=== PATIENT | female | born 1950 | race Caucasian/White ===

== ENCOUNTER 2022-08-19 04:04 | Observation (INO) ==
[2022-08-19] MEDS ORDERED: Naloxone 0.4 MG/ML INJ IVP PRN (10:11)
[2022-08-19] MEDS ORDERED: Acetaminophen 325 MG TABLET PO PRN ×2 (10:17→18:29)
[2022-08-19] MEDS ORDERED: Dextrose Gel 15 GM/37.5 ML TUBE PO PRN ×2 (10:27)
[2022-08-19] MEDS ORDERED: D5% in Water 1,000 ML IVC PRN (10:27)
[2022-08-19] MEDS ORDERED: *HR* Dextrose 50 % in Water (Syg) 50 ML SYRINGE IVP PRN (10:27)
[2022-08-19] MEDS ORDERED: Nitroglycerin 0.4 MG TAB.SUBL SL PRN (10:28)
[2022-08-19] MEDS ORDERED: *HR* HYDROcodone/Acet 5/325 mg TABLET PO PRN (10:28)
[2022-08-19 11:03] LABS: Hematocrit 39.8 % (35.3-44.9); Hemoglobin 12.9 g/dL (11.5-15.4); Mean Corpuscular HGB Conc 32.4 g/dL (31.6-35.5); Mean Corpuscular Hemoglobin 29.4 pg (28.0-33.3); Mean Corpuscular Volume 90.7 fL (83.0-100.0); Mean Platelet Volume 10.4 fL (9.4-12.4); Platelet Count 222 K/mcL (140-400); Red Blood Count 4.39 M/mcL (3.82-4.97); Red Cell Distribution Width 13.1 % (11.5-14.5)
[2022-08-19 11:49] LABS: Calcium 9.4 mg/dL (8.6-10.3); Potassium 3.7 mEq/L (3.5-5.1)
[2022-08-19] MEDS: amLODIPine 5 MG TABLET PO SCH (12:04)
[2022-08-19] MEDS: cloNIDine HCL 0.1 MG TABLET PO SCH ×2 (12:04→12:14)
[2022-08-19] MEDS: BuPROPion SR (12 HR) 150 MG TABLET PO SCH (12:04)
[2022-08-19] MEDS: Furosemide 20 MG TABLET PO SCH (12:04)
[2022-08-19] MEDS: Insulin LISPRO 300 UNITS/3 ML VIAL SUBQ SCH ×3 (12:05→19:45)
[2022-08-19] MEDS ORDERED: GlipiZIDE 5 MG TABLET PO SCH (17:00)
[2022-08-19] MEDS ORDERED: Ibuprofen 600 MG TABLET PO PRN (18:29)
[2022-08-19] MEDS: Gabapentin 300 MG CAPSULE PO SCH (22:00)
[2022-08-19] MEDS: *HR* Metformin 500 MG TABLET PO SCH (22:00)
[2022-08-20 06:47] LABS: Basophils # 0.1 K/mcL (0.0-0.2); Eosinophils # 0.2 K/mcL (0.0-0.6); Eosinophils % 2.4 %; Hematocrit 38.9 % (35.3-44.9); Hemoglobin 12.3 g/dL (11.5-15.4); Immature Granulocytes % 0.1 % (0-4); Lymphocytes # 1.9 K/mcL (0.6-4.6); Mean Corpuscular HGB Conc 31.6 g/dL (31.6-35.5); Mean Corpuscular Hemoglobin 29.2 pg (28.0-33.3); Mean Corpuscular Volume 92.4 fL (83.0-100.0); Mean Platelet Volume 10.8 fL (9.4-12.4); Monocytes # 0.7 K/mcL (0.0-1.3); Monocytes % 10.6 %; Neutrophils # 3.8 K/mcL (1.6-8.9); Platelet Count 234 K/mcL (140-400); Red Blood Count 4.21 M/mcL (3.82-4.97); Red Cell Distribution Width 13.2 % (11.5-14.5); Segmented Neutrophils % 56.9 %; White Blood Count 6.7 K/mcL (4.3-11.1)
[2022-08-20 07:46] LABS: Calcium 9.6 mg/dL (8.6-10.3); Potassium 3.9 mEq/L (3.5-5.1)
[2022-08-20] MEDS: Insulin LISPRO 300 UNITS/3 ML VIAL SUBQ SCH ×4 (07:55→20:47)
[2022-08-20] MEDS: *HR* Metformin 500 MG TABLET PO SCH ×2 (08:03→17:56)
[2022-08-20] MEDS: Gabapentin 300 MG CAPSULE PO SCH ×2 (08:03→20:47)
[2022-08-20] MEDS: BuPROPion SR (12 HR) 150 MG TABLET PO SCH (08:03)
[2022-08-20] MEDS ORDERED: 0.9 % Sodium Chloride 1,000 ML IVC SCH (09:00)
[2022-08-20] MEDS ORDERED: hydroCHLOROthiazide 25 MG TABLET PO SCH (09:00)
[2022-08-20] MEDS: Loratadine 10 MG TABLET PO SCH (11:07)
[2022-08-20] MEDS: amLODIPine 5 MG TABLET PO SCH (11:19)
[2022-08-20] MEDS: Ketoconazole 2% CRM 15 GM TUBE TP SCH (11:26)
[2022-08-20] MEDS: diazePAM 5 MG TABLET PO PRN ×2 (11:46→23:58)
[2022-08-20] MEDS: *HR* OxyCODONE/APAP 5/325 TABLET PO PRN (23:58)
[2022-08-21 07:53] LABS: Potassium 3.8 mEq/L (3.5-5.1)
[2022-08-21 08:00] LABS: Hematocrit 35.7 % (35.3-44.9); Hemoglobin 11.5 g/dL (11.5-15.4); Mean Corpuscular HGB Conc 32.2 g/dL (31.6-35.5); Mean Corpuscular Hemoglobin 29.7 pg (28.0-33.3); Mean Corpuscular Volume 92.2 fL (83.0-100.0); Platelet Count 235 K/mcL (140-400); Red Blood Count 3.87 M/mcL (3.82-4.97); Red Cell Distribution Width 13.1 % (11.5-14.5); White Blood Count 6.7 K/mcL (4.3-11.1)
[2022-08-21] MEDS: Insulin LISPRO 300 UNITS/3 ML VIAL SUBQ SCH ×4 (09:32→19:46)
[2022-08-21] MEDS: *HR* Metformin 500 MG TABLET PO SCH ×2 (09:49→17:57)
[2022-08-21] MEDS: Gabapentin 300 MG CAPSULE PO SCH ×2 (09:49→19:42)
[2022-08-21] MEDS: Loratadine 10 MG TABLET PO SCH (09:49)
[2022-08-21] MEDS: amLODIPine 5 MG TABLET PO SCH (09:49)
[2022-08-21] MEDS: BuPROPion SR (12 HR) 150 MG TABLET PO SCH (09:50)
[2022-08-21] MEDS: Ketoconazole 2% CRM 15 GM TUBE TP SCH (09:50)
[2022-08-21] MEDS: *HR* OxyCODONE/APAP 5/325 TABLET PO PRN (18:50)
[2022-08-21] MEDS: diazePAM 5 MG TABLET PO PRN (19:42)
[2022-08-21] MEDS ORDERED: Neosporin OINT 15 GM TUBE TP SCH (21:00)
[2022-08-22 02:48] VITALS: RESP 16
[2022-08-22 07:28] LABS: Hematocrit 35.8 % (35.3-44.9); Hemoglobin 11.3 g/dL (11.5-15.4); Mean Corpuscular HGB Conc 31.6 g/dL (31.6-35.5); Mean Corpuscular Hemoglobin 29.3 pg (28.0-33.3); Mean Corpuscular Volume 92.7 fL (83.0-100.0); Mean Platelet Volume 10.8 fL (9.4-12.4); Platelet Count 222 K/mcL (140-400); Red Blood Count 3.86 M/mcL (3.82-4.97); Red Cell Distribution Width 13.1 % (11.5-14.5); White Blood Count 5.8 K/mcL (4.3-11.1)
[2022-08-22 07:44] LABS: Calcium 9.2 mg/dL (8.6-10.3); Potassium 4.3 mEq/L (3.5-5.1)
[2022-08-22] MEDS: Insulin LISPRO 300 UNITS/3 ML VIAL SUBQ SCH ×2 (09:21→11:54)
[2022-08-22] MEDS: amLODIPine 5 MG TABLET PO SCH (09:21)
[2022-08-22] MEDS: Loratadine 10 MG TABLET PO SCH (09:22)
[2022-08-22] MEDS: Furosemide 20 MG TABLET PO SCH (09:22)
[2022-08-22] MEDS: Gabapentin 300 MG CAPSULE PO SCH (09:22)
[2022-08-22] MEDS: *HR* Metformin 500 MG TABLET PO SCH (09:22)
[2022-08-22] MEDS: BuPROPion SR (12 HR) 150 MG TABLET PO SCH (09:22)
[2022-08-22 12:04] VITALS: BP 134/69; PULSE 86; TEMP 97.8; O2SAT 98
[2022-08-22] MEDS: *HR* OxyCODONE/APAP 5/325 TABLET PO PRN (14:08)
[2022-08-22] MEDS: diazePAM 5 MG TABLET PO PRN (14:09)
[2022-08-22] MEDS ORDERED: *HR* Metformin 500 MG TABLET PO SCH (17:00)
== END 2022-08-22 03:10 | disposition home or self-care (01) ==
LOC: INPPIK
PROVIDERS: ADMIT Student in an Organized Health Care Education/Training Program; ATTEND Internal Medicine